=== PATIENT | female | born 1970 | race Caucasian/White ===

== ENCOUNTER → 2016-10-28 | Outpatient (CLI) | payer BC ==
[~2016-10-28] MED LIST: ACET-1256 PO; ACET-1346; ACET1TAB84 PO; ANAS1TAB19 PO; CEPH500C2 PO; CYCL5TAB PO; DIPH-437 PO; GABA-112 PO; HYDR5TAB27 PO; IBUP600T44 PO; LORA-741 PO; MTR600X PO; NAPR1TAB9 PO; PRENCAP; RANI150T3 PO; RANITAB6; TRIA37.5 PO; VNTHFA/IN INH
[2016-10-28 14:02] LABS: BLOOD UREA NITROGEN 13 mg/dl (7-18); CALCIUM 9.1 mg/dl (8.5-10.1); CARBON DIOXIDE 31 mmol/L (21-32); CHLORIDE 102 mmol/L (98-107); CHOLESTEROL 244 mg/dl (0-200); CREATININE 0.92 mg/dl (0.60-1.20); GLUCOSE 98 mg/dl (70-99); POTASSIUM 3.6 mmol/L (3.5-5.1); SODIUM 140 mmol/L (136-145)
[2016-10-28 14:06] LABS: CHOLESTEROL/HDL RATIO 5.3; HDL CHOLESTEROL 46 mg/dl; LDL CHOLESTEROL CALCULATED 173 mg/dl; TRIGLYCERIDES 125 mg/dl (0-150); VERY LOW DENSITY LIPOPROT CALC 25 mg/dl
== END | disposition home or self-care (01) ==
LOC: C.LABBC 11:37
PROVIDERS: ATTEND Family Medicine
DX: I10 Essential (primary) hypertension (principal); E78.5 Hyperlipidemia, unspecified

== ENCOUNTER → 2016-11-14 | Outpatient (CLI) | payer BC ==
[~2016-11-14] MED LIST changes: -ACET-1346; +ACET325T30
--- NOTE | 2016-11-14 15:35 | DIAGNOSTIC IMAGING REPORT ---
LYMPHOSCINTIGRAPHY RIGHT BREAST; LYMPHOSCINTIGRAPHY LEFT BREAST CLINICAL HISTORY: Bilateral breast cancer. PROCEDURE: Using standard sterile technique, 4 intradermal and one deep injection of 0.511 mCi of Lymphoseek was placed in the right breast lateral to the nipple. 4 intradermal and one deep injection of 0.518 mCi of Lymphoseek was then placed into the left breast in the upper outer quadrant. The patient tolerated the procedure well. There were no immediate complications. The patient will undergo surgery tomorrow at [facility]. No imaging was obtained at the referring physician's request. IMPRESSION: Injection of 0.511 mCi of Lymphoseek in the right breast and 0.5, 0.8 mCi of Lymphoseek in the left breast as above. Electronically signed by: Juaquin Buckner M.D. 11/14/2016 3:33 PM Dictated Date/Time: 11/14/2016 3:31 PM
== END | disposition home or self-care (01) ==
LOC: C.NUCL 13:23
PROVIDERS: ATTEND Surgery
DX: C50.911 Malignant neoplasm of unspecified site of right female breast (principal); C50.912 Malignant neoplasm of unspecified site of left female breast

== ENCOUNTER 2017-02-05 05:45 | Observation (INO) | payer BC ==
[2017-01-30 10:55] VITALS: BMI 29.0
--- NOTE | 2017-01-30 11:43 | PAT Medication Instructions ---
Service Date Jan 30, 2017. Current Home Medication List Acetaminophen (Tylenol), 1,000 MG PO TID Acetaminophen/Diphenhydramine (Tylenol Pm), 1 TAB PO HS PRN for PRN Albuterol Hfa (Ventolin Hfa), 2-4 PUFFS INH Q6H Gabapentin (Neurontin), 200 MG PO HS Lorazepam (Ativan), 0.5 MG PO BID PRN for RN Naproxen (Aleve), 440 MG PO HS Ranitidine Hcl (Zantac), 150 MG PO HS Triamterene/Hctz (Dyazide 37.5MG/25MG), 1 TAB PO HS Medication Instructions For Your Scheduled Surgery Naproxen (Aleve), 440 MG PO HS (patient not currently taking) - Take the following medications the morning of surgery with a sip of water: Lorazepam (Ativan), 0.5 MG PO BID PRN for RN Acetaminophen (Tylenol), 1,000 MG PO TID (if needed) Albuterol Hfa (Ventolin Hfa), 2-4 PUFFS INH Q6H (if needed/ also bring with you to hospital on day of surgery) - Take the following medications as scheduled the night before surgery: Triamterene/Hctz (Dyazide 37.5MG/25MG), 1 TAB PO HS Ranitidine Hcl (Zantac), 150 MG PO HS Lorazepam (Ativan), 0.5 MG PO BID PRN for RN Gabapentin (Neurontin), 200 MG PO HS Acetaminophen/Diphenhydramine (Tylenol Pm), 1 TAB PO HS PRN for PRN Acetaminophen (Tylenol), 1,000 MG PO TID If you have any questions please call us at [phone] or [phone] ( Jane) or [phone]
[2017-01-30 13:03] LABS: PARTIAL THROMBOPLASTIN RATIO 1.1; PROTHROMBIN TIME (PATIENT) 10.7 SECONDS (9.0-12.0)
[~2017-02-05] VITALS: Ht 162.6 cm; Wt 78.6 kg
[2017-02-05] VITALS (8 sets, daily range): BP systolic 117–145; BP diastolic 64–83; PULSE 72–113; TEMP 36.5–36.9; O2SAT 94–100; Ht 162.6 cm; Wt 78.6 kg
[~2017-02-05 05:45] MED LIST changes: -ACET1TAB84 PO; -ACET325T30; -ANAS1TAB19 PO; -CEPH500C2 PO; -CYCL5TAB PO; -HYDR5TAB27 PO; -IBUP600T44 PO; -MTR600X PO; -PRENCAP; -RANITAB6
[2017-02-05] MEDS ORDERED: CLINDAMYCIN 600 MG/54 ML D5W IV SCH (06:00)
[2017-02-05] MEDS ORDERED: ENOXAPARIN 40 MG/0.4 ML SYR SQ SCH (06:00)
[2017-02-05] MEDS ORDERED: CLINDAMYCIN PHOS 150 MG/ML 2 ML VIAL IV SCH (06:00)
[2017-02-05] MEDS ORDERED: LACTATED RINGER'S 1000ML 1,000 ML IV SCH (06:00)
[2017-02-05] MEDS ORDERED: MIDAZOLAM HCL 1 MG/ML 2ML VIAL ONE (06:56)
[2017-02-05] MEDS ORDERED: FENTANYL CITRATE INJ 50 MCG/1 ML 2 ML VIAL ONE ×2 (06:56→13:44)
[2017-02-05] MEDS ORDERED: SCOPOLAMINE 1.5 MG TDSY TD ONE ×2 (06:57→07:00)
[2017-02-05] MEDS ORDERED: FENTANYL CITRATE INJ 50 MCG/1 ML 2 ML VIAL IV PRN (07:00)
[2017-02-05] MEDS ORDERED: ATROPINE SULFATE 0.1 MG/ML 5ML SYR IV PRN (07:00)
[2017-02-05] MEDS ORDERED: HYDROmorphone INJ 1 MG/ML SYR IV PRN (07:00)
[2017-02-05] MEDS ORDERED: ONDANSETRON INJ 2 MG/ML 2 ML VIAL IV PRN ×2 (07:00→13:00)
[2017-02-05] MEDS ORDERED: EpHEDrine SULFATE INJ 50 MG/ML AMP IV PRN (07:00)
--- NOTE | 2017-02-05 07:01 | History & Physical Bridge Note ---
H&P Re-Evaluation Bridge Note: I have examined the patient, reviewed the History & Physical and in the interval since the performance of the History & Physical I have noted the following changes of clinical significance: No changes noted
[2017-02-05] MEDS ORDERED: KETAMINE HCL INJ 50 MG/ML 10 ML VIAL ONE (07:05)
[2017-02-05] MEDS ORDERED: ACETAMINOPHEN 1000 MG/100 ML IV IV ONE (07:12)
[2017-02-05] MEDS ORDERED: GENTAMICIN SULFATE 40 MG/ML 2 ML VIAL ONE ×3 (07:13→10:40)
[2017-02-05] MEDS ORDERED: CEFAZOLIN SOD 1 GM VIAL ONE ×3 (07:13→10:40)
[2017-02-05] MEDS ORDERED: LIDOCAINE/EPINEPHRINE 1% 20 ML VIAL ONE (07:13)
[2017-02-05] MEDS ORDERED: BACITRACIN 50000 UNIT VIAL ONE ×3 (07:14→10:41)
[2017-02-05] MEDS ORDERED: BUPIVACAINE 0.25% 30 ML VIAL ONE (07:14)
[2017-02-05] MEDS ORDERED: METHYLENE BLUE 0.5% 10 ML VIAL ONE (07:15)
[2017-02-05] MEDS ORDERED: BUPIVACAINE 0.5 % 5 MG/1 ML MPF 30ML VIAL ONE (07:16)
[2017-02-05] MEDS ORDERED: LIDOCAINE HCL 1% 20 ML VIAL ONE (07:34)
[2017-02-05] MEDS ORDERED: HYDROmorphone INJ 2 MG/ML SYR/VIAL ONE ×2 (07:59→10:00)
[2017-02-05] MEDS ORDERED: ONDANSETRON INJ 2 MG/ML 2 ML VIAL ONE (08:21)
[2017-02-05] MEDS ORDERED: GLYCOPYRROLATE INJ 0.2 MG/ML VIAL ONE (08:21)
[2017-02-05] MEDS ORDERED: LIDOCAINE HCL 2% 2 ML VIAL (20MG/ML) ONE (08:21)
[2017-02-05] MEDS ORDERED: EpHEDrine SULFATE 50MG/5ML SYR ONE (08:21)
[2017-02-05] MEDS ORDERED: PROPOFOL IV EMULSION 10 MG/ML 20 ML VIAL IV ONE (08:21)
[2017-02-05] MEDS ORDERED: NEOSTIGMINE METHYLSULFATE 5 MG/5 ML SYR ONE (08:21)
[2017-02-05] MEDS ORDERED: ROCURONIUM BROMIDE 10 MG/ML 5 ML VIAL ONE (08:21)
--- NOTE | 2017-02-05 08:32 | Discharge Instructions ---
Discharge Instructions Date of Service Feb 05, 2017. Admission Reason for Admission: Hx Of Breast Cancer, Encounter For Breast Reconstr Discharge Discharge Diagnosis / Problem: History of Breast Cancer Discharge Goals Goal(s): Decrease discomfort Activity Recommendations Activity Limitations: per Instructions/Follow-up section ACTIVITY RECOMMENDATIONS: __Normal activities _x_No bending, lifting or straining __No driving __Driving allowed when you are off pain medications _x_Walking permitted __You should have help at home for ___ days DRESSINGS: __No dressings required _x_Keep dressings dry/in place until first office visit __Remove dressings ___ and leave dressings off __Apply ice ___ days __Remove dressings and reapply garment __Apply antibiotic ointment (Bacitracin, Neosporin, etc) to wounds 3-4 times/ day for 10 days BATHING: _x_Keep dressings dry _x_Sponge bathing permitted __Showering permitted _x_No swimming, hot tubs or soaking in a tub MEDICATIONS: Resume previous medications unless instructed otherwise by your surgeon. _x_Do not use aspirin, Motrin, Advil or Ibuprofen as these may promote bleeding. Please use Tylenol. _x_Prescription(s) provided:antibiotics and pain medication were provided at your last office visit OTHER INSTRUCTIONS: _x_Record drain output 2-3 times per day SPECIAL CARE INSTRUCTIONS: * It is normal to have a mild fever after surgery. If your temperature is higher than 101.5 degrees F, please call the office at [phone]. * Constipation is a typical side effect of pain medication. An over-the- counter stool softener will help relieve this. * Leaking around surgical drains may occur and should not cause concern. Sometimes these drains become clogged. If this happens, remove the bulb and milk the clot out of the tube, then replace the bulb. * Drainage from wounds after liposuction is normal and should be expected. Garments will become soiled. You should protect furniture and bedding. This drainage should mostly subside within 2-3 days. Leave garments in place unless instructed to remove them. * If you have unusual drainage from a wound or are concerned you have an infection or have any questions or concerns, please call the office at [phone]. FOLLOW UP VISIT: If not already scheduled, please call the office, , when you return home after surgery to schedule an appointment to be seen in _1__ days. . Current Hospital Diet Patient's current hospital diet: Discharge Diet Recommended Diet: Regular Diet Pending Studies Studies pending at discharge: yes List of pending studies: pathology Medical Emergencies . Who to Call and When: Medical Emergencies: If at any time you feel your situation is an emergency, please call 911 immediately. . Non-Emergent Contact Non-Emergency issues call your: Primary Care Provider, Surgeon . "Provider Documentation" section prepared by Brionna Calloway. VTE Core Measure Inpt VTE Proph given/why not?: SCD's [place] Drug Monitoring Program Search Results: no issues identified
[2017-02-05] MEDS ORDERED: EpHEDrine SULFATE INJ 50 MG/ML AMP ONE (11:29)
[2017-02-05] MEDS: BACITRACIN OINT 15 GM TUBE ONE ×2 (12:32→12:48)
--- NOTE | 2017-02-05 12:49 | [facility] Post Operative Brief Note ---
Immediate Operative Summary Operative Date Feb 05, 2017. Pre-Operative Diagnosis Breast Cancer Post-Operative Diagnosis Breast Cancer Procedure(s) Performed Bilateral Nipple Sparing Mastectomies - Dr. Lara Bilateral Nipple Sparing First Stage Immediate Breast Reconstruction with Tissue Tow Truck Driver and Acellular Dermal Matrix - Surgeon Dr. Lara, Dr. Jaimes Engine Buildup Mechanic Surgeon(s) Brionna Calloway PA-C Estimated Blood Loss 50CC Findings NACs pink and viable at end of case, 350 cc per bottle blowing machine tender Specimens F: Tissue below aerola left breast G: Tissue below nipple left breast Drains LEX x2 Anesthesia General Complication(s) None Disposition Recovery Room / PACU
[2017-02-05] MEDS ORDERED: ALBUTEROL HFA 8 GM INHALER INH PRN (13:00)
[2017-02-05] MEDS ORDERED: MoRPHine SULFATE 2 MG/ML CARP IV PRN (13:00)
[2017-02-05] MEDS ORDERED: DiphenhydrAMINE HCL 50 MG/ML VIAL IV PRN (13:00)
[2017-02-05] MEDS ORDERED: PROMETHAZINE HCL INJ 12.5 MG in SODIUM CHLORIDE 0.9% 50ML 50 ML IV PRN (13:00)
[2017-02-05] MEDS ORDERED: LORAZEPAM 0.5 MG TAB PO PRN (13:00)
[2017-02-05] MEDS ORDERED: OXAZEPAM 10MG CAP PO PRN (13:00)
[2017-02-05] MEDS ORDERED: MoRPHine SULFATE 4 MG/ML 1 ML CARP\\VIAL IV PRN (13:00)
--- NOTE | 2017-02-05 13:02 | DIAGNOSTIC IMAGING REPORT ---
CHEST ONE VIEW PORTABLE CLINICAL HISTORY: INCORRECT INSTRUMENT COUNT EXTRA RETRACTOR AT END OF CASE COMPARISON STUDY: No previous studies for comparison. FINDINGS: The tip of the endotracheal tube is 4.6 cm above the karen. There are no unexpected radiopaque foreign bodies. Breast spacers are in place. IMPRESSION: No unexpected radiopaque foreign bodies within the chest. Electronically signed by: Tien Villafuerte M.D. 02/05/2017 1:00 PM Dictated Date/Time: 02/05/2017 1:00 PM
[2017-02-05] MEDS ORDERED: IV FLUIDS COMPLETED PRN (13:15)
--- NOTE | 2017-02-05 13:54 | Anesthesiology Progress Note ---
Anesthesia Post Op Note Date & Time Feb 05, 2017 at 13:53 Vital Signs Pain Intensity: 5 Vital Signs Past 12 Hours Date Time Temp Pulse Resp B/P Pulse Ox O2 Delivery O2 Flow Rate FiO2 02/05/17 13:45 90 14 156/76 97 Nasal Cannula 2 02/05/17 13:35 97 14 138/89 94 Room Air 02/05/17 13:25 109 14 154/83 99 Mask 10 02/05/17 13:15 108 16 146/84 99 Mask 10 02/05/17 13:07 36 114 16 149/80 99 Mask 10 02/05/17 06:07 36.8 72 16 136/77 98 Room Air Notes Mental Status: alert / awake / arousable, participated in evaluation Pt Amnestic to Procedure: Yes Nausea / Vomiting: adequately controlled Pain: adequately controlled Airway Patency, RR, SpO2: stable & adequate BP & HR: stable & adequate Hydration State: stable & adequate Anesthetic Complications: no major complications apparent Pt doing well.
--- NOTE | 2017-02-05 15:04 | OPERATIVE REPORT ---
DATE OF OPERATION: 02/05/2017 PREOPERATIVE DIAGNOSES: 1. Upper outer quadrant left breast cancer. 2. Right breast ductal carcinoma in situ. PROCEDURE: Bilateral nipple sparing mastectomy to be followed by immediate reconstruction performed by Dr. Zoraida Jaimes. SURGEON: Dr. Lara. ANESTHESIA: General with local infiltration with 1% lidocaine and 0.5% Marcaine mixed in a 1:1 ratio. ESTIMATED BLOOD LOSS: Minimal. Drains were replaced at the end of the case by Dr. Jaimes. Counts would be performed at the end of the case after Dr. Jaimes was finished. INDICATIONS AND FINDINGS: The patient is a 46-year-old female who was found to have calcifications in both upper outer breasts with extensive calcifications on the right and a small cluster on the left. Ultrasound core biopsies were performed on both. The right calcifications were found to be ductal carcinoma in situ. Because of the extensive nature, it was doubtful whether a lumpectomy would be possible to remove all the calcifications. The small group of calcifications in the left upper outer breast however contained microinvasion with two 1.5 mm areas of grade 1-2 infiltrating ductal carcinoma. Because of the bilateral nature of disease and the extensive nature of the DCIS on the right, the patient was proposed to entertain bilateral nipple sparing mastectomies. Before doing this however, her breasts were staged. She had sentinel lymph node biopsies performed in both axillae. The sentinel node on the right was negative. The sentinel node on the left contained a 3.5 mm implanted metastatic adenocarcinoma. At this point, it was proposed that the patient have possibility of just lumpectomy and radiation on the left with a right mastectomy and reconstruction or a routine mastectomy on the left with possible radiation. However, the patient was still adamant that she wanted the nipple sparing mastectomy. So to completely stage the left side, a lumpectomy and axillary dissection was performed. She had a total of 19 negative nodes on the left. She had 1 small implant of remaining tumor, measuring 0.94 mm in size. This was grade 1 infiltrating ductal carcinoma. Margins were clear on the lumpectomy site. She was seen by oncology, Dr. Nba Corcoran, who proposed chemotherapy but the patient declined and would rather go with hormone therapy only. Dr. Corcoran also referred her to radiation therapy. She declined the 1st appointment with radiation and was reluctant to have radiation but will be seeing radiation in 2 weeks. After discussion with Dr. Gonzalez from radiation, he said people with 1-3 lymph nodes positive following mastectomy could be offered radiation therapy. This is based on meta-analysis out of [place] from historic data. With this knowledge, the patient still wished to proceed with the nipple sparing mastectomy. At the time of the procedure, the breast tissue was very well defined and the dissection was able to be carried out on surface of the breast, away from the subcutaneous tissue with a very defined plane. The area of previous dissection on the left had some fat necrosis. No other gross tumors were seen in the specimen. The tissue directly below both nipples was excised as separate specimens to assure no DCIS was approaching the nipple. There was no gross disease in these areas either. TECHNIQUE: The patient was placed on the operating table in the supine position with both arms extended on arm boards. Following general anesthetic, patient was prepped with Betadine and draped in a sterile fashion. Timeout was performed, identifying the patient and the procedure. Attention was first turned to the right breast which had no invasive disease. An inframammary incision was made for approximately 8 cm. Dissection was carried along from the inframammary incision, cephalad to the area of the areola. Neetu clamps were used on the breast tissue for countertraction. The flap was raised with palpation using the surgeon's hand as retractor on the flap to hydrate thickener operator the thickness of the flap at all times. When the areola was reached, a thin layer of residual breast tissue was allowed to remain behind in this area, so as to not buttonhole the areola. Once beyond the superior area of the areola, the dissection was once again broke through into the fatty tissue under the surface of the breast. Once this level was reached, the attention was turned back down to the inferior aspect of the breast, in which Neetu clamps were applied. This area was elevated and the breast tissue was dissected off of the underlying pectoralis muscle, taking the pectoralis fascia along with the breast. This dissection was carried as far cephalad, medial and lateral as possible. The lateral aspect went down along the serratus anterior muscle. Once freed from below, attention was then turned above. Dissection on the anterior surface breast was conducted medially and then laterally. Finally, the medial aspect of the breast was identified, dissected circumferentially up to the apex of the superior portion of the breast, which had been dissected down to the pectoralis muscle. This was taken off the pectoralis, freeing the breast superiorly. Final dissection was carried out in the area of the axilla. The dissection ended at the area of the previous sentinel node biopsy. Suture was placed on the axillary tail prior to removal and on the breast directly beneath the nipple. The dissection was carried out laterally in the same fashion along the edge of the breast, finally freeing the breast which was then sent to pathology for immediate fixation in formalin. The area was inspected and found to have excellent hemostasis. Attention was then turned below the nipple. There were some small remnants of breast tissue in the area beneath the areola, which were removed and sent with the specimen. The area of the nipple was identified, a Neetu was used to grasp superficial tissue below the nipple. Metzenbaum scissors were used to dissect a thin layer of tissue in this area beneath the nipple on the major ducts for pathologic evaluation to assure there was no DCIS coming to the area. Warm laps were then placed along the incision line and the field was turned over to Dr. Zoraida Jaimes for reconstruction. Attention was then turned to the left breast. The same inframammary fold incision was made for 8 cm using local anesthetic infiltration in the skin prior to incision. The dissection was carried out on the surface of the breast using Neetu clamps for retraction to the point above the superior aspect of the areola. The breast was then lifted off of the pectoralis muscle and serratus anterolaterally. Dissection was then carried medial, up along the medial aspect of the breast, down to the pectoralis. At this point, it was noted that a rim of breast tissue was left at the inframammary fold. This was removed easily and sent as a separate specimen using Bovie cautery for this dissection. The dissection was then carried laterally along the surface of the breast and finally dissection through the breast tissue in the superior aspect of the areola was dissected through to the fatty tissue on the surface of the breast. Once again, the dissection was carried down to the pectoralis muscle superiorly. From a medial approach, the dissection was carried around, finally to the area of the axilla where the previous lumpectomy was performed. All the fat necrosis from the previous lumpectomy was removed along with the specimen. A suture was placed in the tail of Jamison and the axillary tail, marking this for pathology as well as a long suture and the breast below the nipple. The breast was then dissected free from the axilla in the area of the previous lumpectomy and sent to pathology for immediate fixation in formalin. Attention was then turned below the nipple and areola. There was one area of residual breast tissue on the superior aspect of the areola. This was removed using Metzenbaum scissors and sent as separate specimens. The Neetu was then placed superficially on the tissue below the nipple and once again this was sent as a separate specimen to rule out any DCIS. There was arterial flow in the area below the areola and nipple in this area. The wound was then inspected. Complete hemostasis was obtained with Bovie cautery, warm sponge was then placed over the incision line along with a clean towel and this field was once again turned over to Dr. Zoraida Jaimes. The patient tolerated the procedure well and left the operating room in stable condition. I attest to the content of the Intraoperative Record and any orders documented therein. Any exceptio ns are noted below.
[2017-02-05] MEDS: MoRPHine SULFATE 2 MG/ML CARP IV PRN ×3 (15:49→22:16)
[2017-02-05] MEDS: LACTATED RINGER'S 1000ML 1,000 ML IV SCH ×2 (15:50→22:15)
[2017-02-05] MEDS: CEFAZOLIN IV 2,000 MG in DEXTROSE 5% 50ML 50 ML IV SCH (18:49)
[2017-02-05] MEDS: HYDROmorphone HCL 2 MG TAB PO PRN (20:04)
[2017-02-05] MEDS ORDERED: GABAPENTIN 100 MG CAP PO SCH (21:00)
[2017-02-05] MEDS ORDERED: RANITIDINE HCL 150 MG TAB PO SCH (21:00)
[2017-02-05] MEDS ORDERED: TRIAMTERENE/HCTZ 37.5/25MG CAP PO SCH (21:00)
--- NOTE | 2017-02-05 22:03 | OPERATIVE REPORT ---
DATE OF OPERATION: 02/05/2017 PREOPERATIVE DIAGNOSIS: Breast carcinoma. POSTOPERATIVE DIAGNOSIS: Same. PROCEDURE PERFORMED: Bilateral first-stage immediate breast reconstruction with tissue job tracer and AlloDerm. SURGEON: Dr. Zoraida Jaimes. ENGINEER GAS PUMPING STATION: Brionna Calloway PA-C. ANESTHESIA: General. COMPLICATIONS: None. INDICATION FOR THE PROCEDURE: The patient is a 46-year-old female who was referred to me by Dr. Lara for evaluation for breast reconstruction. She had recent diagnosis of left breast cancer and right breast ductal carcinoma in situ. She underwent staging sentinel lymph node biopsy, followed by mastectomy. We felt she would be a candidate for nipple sparing mastectomy. This was performed by Dr. Lara prior to my beginning the reconstruction. Following completion of the right mastectomy, I scrubbed to begin the reconstructive process while Dr. Lara performed the left mastectomy. His approach for mastectomy was an inframammary fold incision along the lateral aspect. Pocket was examined for hemostasis. All tissue appeared viable including the nipple-areolar complex. I began with elevation of the pectoralis major muscle, off the pectoralis minor laterally, and this was performed in a lateral to medial direction. I divided the insertion of the pectoralis major muscle off the ribs inferiorly. I did not divide any of the sternal attachments. Throughout this procedure, hemostasis was achieved with electrocautery. Once the muscle had been adequately elevated to create a pocket, I selected a medium contour thick AlloDerm breast piece which was prepared and placed into the wound. It was sutured medially using 2-0 Vicryl U stitches and the inframammary fold was sutured using 2-0 Vicryl U stitches to attach the AlloDerm to the inframammary fold. Subsequent to this, base diameter was measured and noted to be 13 cm. Wound was irrigated using triple antibiotic irrigation. A 13 cm Allergan style 133 MV-T job tracer was selected and prepared by aspirating residual air and injecting 50 mL of sterile saline. It was bathed in antibiotic irrigation prior to implantation. Gloves were changed. Chairlift Operator was then placed in the pocket as medially and inferiorly as possible and was tacked down using 2-0 Vicryl sutures to the suture tabs. AlloDerm was sutured to the inferior border of the pectoralis major muscle using 2-0 Vicryl running suture. Lateral pocket was closed down using 2-0 Vicryl U stitches to suture the AlloDerm to the serratus fascia. A 15-[place] drain was placed laterally in the wound and brought out through a separate stab incision. I performed minimal closure of the inframammary fold using 2-0 Vicryl deep dermal suture. I then marked the position for accessing the job tracer fill port. The job tracer was accessed by my physician assistant public defender and a total of 350 mL including the initial 50 mL were placed. At this point, there was minimal tension on the wound but with reasonable breast volume. I, therefore, elected to proceed with closure using 2-0 Vicryl deep dermal sutures and 3-0 PDS interrupted dermal sutures. 3-0 Monocryl running subcuticular suture was placed. Dermabond Prineo was applied to the incision. A similar procedure was performed on the left side. Final total of 350 mL was also placed on the left side. Following completion of the procedure, nipple-areolar complexes were centered nicely over the tissue job tracer and the nipple-areolar complex appeared viable. 0.25% Marcaine plain was placed through the LEX drains. Xeroform was placed around the dressings and dry dressings were placed. A surgical bra was placed. The procedure was tolerated well. The patient was awakened and transferred to recovery in satisfactory condition. Brionna Calloway PA-C, was present and scrubbed throughout the entire procedure and was instrumental in preparing the tissue expanders, performing job tracer fill and assisting in simultaneous wound closure. I attest to the content of the Intraoperative Record and any orders documented therein. Any exceptio ns are noted below.
[2017-02-05] MEDS: ACETAMINOPHEN 500 MG TAB PO SCH (22:08)
[2017-02-06] MEDS: HYDROmorphone HCL 2 MG TAB PO PRN ×4 (00:30→15:55)
[2017-02-06] MEDS: MoRPHine SULFATE 2 MG/ML CARP IV PRN ×2 (01:52→03:40)
[2017-02-06] MEDS: CEFAZOLIN IV 2,000 MG in DEXTROSE 5% 50ML 50 ML IV SCH (03:26)
[2017-02-06 04:17] VITALS: BP 105/67; PULSE 81; TEMP 36.9; O2SAT 94
[2017-02-06] MEDS: ACETAMINOPHEN 500 MG TAB PO SCH ×2 (05:51→13:41)
[2017-02-06] MEDS: LACTATED RINGER'S 1000ML 1,000 ML IV SCH ×2 (05:53→08:42)
[2017-02-06 07:34] VITALS: BP 103/68; PULSE 83; TEMP 37; O2SAT 91
[2017-02-06] MEDS ORDERED: MULTIVITAMIN TAB PO SCH (09:00)
--- NOTE | 2017-02-06 09:09 | Surgery Progress Note ---
Surgery Progress Note Date of Service Feb 06, 2017. Subjective Post OP Day: 1 Patient complains of post-operative pain. She is taking morphine and vicodin. Has ambulated and tolerated regular diet. Objective Vital Signs: Date Time Temp Pulse Resp B/P Pulse Ox O2 Delivery O2 Flow Rate FiO2 02/06/17 08:40 Room Air 02/06/17 07:34 37.0 83 20 103/68 91 Room Air 02/06/17 04:17 36.9 81 16 105/67 94 Room Air 02/05/17 23:47 36.9 86 16 117/64 98 Room Air 02/05/17 22:22 94 Room Air 02/05/17 17:45 36.5 99 16 120/77 100 Nasal Cannula 02/05/17 16:48 113 16 131/81 97 Nasal Cannula 2.0 02/05/17 15:45 36.6 100 16 130/80 98 Nasal Cannula 2.0 02/05/17 15:45 Nasal Cannula 2.0 02/05/17 15:23 36.5 100 16 127/79 98 Nasal Cannula 2.0 02/05/17 14:45 36.5 109 16 145/83 100 Nasal Cannula 2.0 02/05/17 14:45 100 Nasal Cannula 2.0 02/05/17 14:15 36.4 88 16 152/78 99 Nasal Cannula 2 02/05/17 14:05 36.4 83 16 147/79 99 Nasal Cannula 2 02/05/17 13:55 36.4 87 16 150/81 98 Nasal Cannula 2 02/05/17 13:45 90 14 156/76 97 Nasal Cannula 2 02/05/17 13:35 97 14 138/89 94 Room Air 02/05/17 13:25 109 14 154/83 99 Mask 10 02/05/17 13:15 108 16 146/84 99 Mask 10 02/05/17 13:07 36 114 16 149/80 99 Mask 10 Physical Exam: LEX drainage (25/20cc last shift) General Appearance: WD/WN, no apparent distress Incision(s): clean, dry, intact, no erythema Assessment & Plan POD #1 bilateral nipple sparing mastectomy with immediate reconstruction 1. having expected post-operative pain. Likely home later today when off morphine. Will see in office tomorrow
--- NOTE | 2017-02-06 10:44 | Anesthesiology Progress Note ---
Anesthesia Post Op Note Date & Time Feb 06, 2017 at 10:43 Vital Signs Vital Signs Past 12 Hours Date Time Temp Pulse Resp B/P Pulse Ox O2 Delivery O2 Flow Rate FiO2 02/06/17 08:40 Room Air 02/06/17 07:34 37.0 83 20 103/68 91 Room Air 02/06/17 04:17 36.9 81 16 105/67 94 Room Air 02/05/17 23:47 36.9 86 16 117/64 98 Room Air Notes Mental Status: alert / awake / arousable, participated in evaluation Pt Amnestic to Procedure: Yes Nausea / Vomiting: adequately controlled Pain: adequately controlled Airway Patency, RR, SpO2: stable & adequate BP & HR: stable & adequate Hydration State: stable & adequate Anesthetic Complications: no major complications apparent
[2017-02-06 12:36] VITALS: BP 108/74; PULSE 67; TEMP 37; O2SAT 94
[2017-02-06] MEDS: HYDROCODONE/ACETAMOPHEN 5/325MG TAB PO PRN ×2 (13:42→17:34)
[2017-02-06 17:10] VITALS: BP 108/74; PULSE 67; TEMP 37; O2SAT 94
--- NOTE | 2017-02-07 08:35 | Discharge Summary ---
Discharge Summary Date of Service Feb 07, 2017. Admission Date/Reason Feb 05, 2017 at 12:55 Hx Of Breast Cancer, Encounter For Breast Reconstr. Discharge Date/Disposition Feb 06, 2017 Home Diagnosis Principal Diagnosis: History of Breast Cancer, Encounter for Breast Reconstruction Procedure(s) Performed Bilateral Nipple Sparing Mastectomy with Immediate Breast Reconstruction using Tissue Expanders and Alloderm Matrix Medication Reconciliation Continued Medications: Acetaminophen (Tylenol) 500 Mg Tab 1000 MG PO TID, TAB Acetaminophen/Diphenhydramine (Tylenol Pm) 500 Mg/25 Mg Tab 1 TAB PO HS PRN for PRN, TAB Albuterol Hfa (Ventolin Hfa) 200 Puffs/45666 Mcg Aers 2-4 PUFFS INH Q6H, #1 INHALER Gabapentin (Neurontin) 100 Mg Cap 200 MG PO HS, CAP Lorazepam (Ativan) 0.5 Mg Tab 0.5 MG PO BID PRN for RN, TAB Ranitidine Hcl (Zantac) 150 Mg Tab 150 MG PO HS, TAB Triamterene/Hctz (Dyazide 37.5MG/25MG) Cap 1 TAB PO HS, CAP Discontinued Medications: Naproxen (Aleve) 220 Mg Tab 440 MG PO HS, TAB Admission Physical Exam As per Admitting History & Physical. Hospital Course Patient presented to [facility] with history of breast cancer. She was taken to the OR and underwent bilateral nipple sparing mastectomy with Dr. Lara and immediate breast reconstruction using tissue expanders and alloderm matrix by Dr. Jaimes. Two rebecca drains were placed intraoperatively. She tolerated the procedure well and was taken to recovery. On POD #1, she was having expected postoperative pain. On exam, her incisions were CDI. Drains had about 25c of serosanguineous fluid. Her nipples were pink. VSS. She was tolerating a regular diet and ambulating. Her pain improved throughout the day and was was able to control pain on PO hydrocodone-acetaminophen. She was then discharged home with instructions to follow-up in the office on POD #2. Discharge Instructions Please refer to the electronic Patient Visit Report (Discharge Instructions) for additional information.
[2017-02-19] MEDS ORDERED: CEPH500C2 PO (09:28)
[2017-02-19] MEDS ORDERED: IBUP600T44 PO (09:29)
[2017-02-19] MEDS ORDERED: CYCL5TAB PO (09:31)
[2017-07-23] MEDS ORDERED: ACET1TAB84 PO (10:15)
[2017-07-23] MEDS ORDERED: ANAS1TAB19 PO (10:15)
== END 2017-02-06 17:57 | disposition home or self-care (01) ==
LOC: ENRESERVDT → ENRESERVTM → C.ACU 05:45 → C.MSN 12:55
PROVIDERS: ADMIT Plastic Surgery; ATTEND Plastic Surgery
DX: C50.912 Malignant neoplasm of unspecified site of left female breast (principal); D05.11 Intraductal carcinoma in situ of right breast; E78.5 Hyperlipidemia, unspecified; F41.8 Other specified anxiety disorders; I10 Essential (primary) hypertension; M51.36 Other intervertebral disc degeneration, lumbar region; Z82.49 Family history of ischemic heart disease and other diseases of the circulatory system; Z85.07 Personal history of malignant neoplasm of pancreas; Z81.8 Family history of other mental and behavioral disorders; Z79.899 Other long term (current) drug therapy

== ENCOUNTER → 2017-02-10 | Outpatient (CLI) | payer BC ==
[~2017-02-10] MED LIST changes: +ACET1TAB84 PO; +ANAS1TAB19 PO; +CEPH500C2 PO; +CYCL5TAB PO; +IBUP600T44 PO
[2017-02-10 17:04] LABS: BLOOD UREA NITROGEN 10 mg/dl (7-18); CARBON DIOXIDE 36 mmol/L (21-32); CHLORIDE 100 mmol/L (98-107); CREATININE 0.88 mg/dl (0.60-1.20); GLUCOSE 88 mg/dl (70-99); MAGNESIUM 2.2 mg/dl (1.8-2.4); POTASSIUM 3.7 mmol/L (3.5-5.1); SODIUM 141 mmol/L (136-145)
== END | disposition home or self-care (01) ==
LOC: C.LAB1850 15:36
PROVIDERS: ATTEND Physician Assistant
DX: G89.18 Other acute postprocedural pain (principal)

== ENCOUNTER → 2017-07-21 | Outpatient (CLI) | payer BC ==
[~2017-07-21] MED LIST changes: -NAPR1TAB9 PO
[2017-07-21 17:30] LABS: BASO % 0.4 %; BASO ABS # 0.04 K/uL (0-0.2); COMPLETE YES; HEMATOCRIT 43.2 % (37-47); IG% 0.1 %; LYMPH % 25.8 %; LYMPH ABS # 2.31 K/uL (1.2-3.4); MEAN CELL VOLUME 91.9 fL (80-100); MEAN CORPUSCULAR HEMOGLOBIN 30.4 pg (25-34); MEAN CORPUSCULAR HGB CONC 33.1 g/dl (32-36); MEAN PLATELET VOLUME 10.1 fL (7.4-10.4); MONO % 7.6 %; NEUT % 65.1 %; PLATELET COUNT 325 K/uL (130-400); WHITE BLOOD COUNT 8.95 K/uL (4.8-10.8)
[2017-07-21 17:39] LABS: PARTIAL THROMBOPLASTIN RATIO 1.1; PROTHROMBIN TIME (PATIENT) 10.4 SECONDS (9.0-12.0)
[2017-07-21 18:08] LABS: BLOOD UREA NITROGEN 9 mg/dl (7-18); BUN/CREATININE RATIO 10.1 (10-20); CARBON DIOXIDE 31 mmol/L (21-32); CHLORIDE 101 mmol/L (98-107); CREATININE 0.87 mg/dl (0.60-1.20); GLUCOSE 95 mg/dl (70-99); POTASSIUM 3.4 mmol/L (3.5-5.1); SODIUM 139 mmol/L (136-145)
== END | disposition home or self-care (01) ==
LOC: C.LAB1850 16:48
PROVIDERS: ATTEND Plastic Surgery
DX: Z42.1 Encounter for breast reconstruction following mastectomy (principal)

== ENCOUNTER → 2017-07-29 | Day surgery (SDC) | payer BC ==
[2017-07-23 10:20] VITALS: Ht 162.6 cm; Wt 80.9 kg
[~2017-07-29] VITALS: Ht 162.6 cm; Wt 80.9 kg
[~2017-07-29] MED LIST changes: -ACET-1256 PO; +ACETAMINOPHEN 325 MG TAB PO PRN; +ATROPINE SULFATE 0.1 MG/ML 5ML SYR IV PRN; +BACITRACIN 50000 UNIT VIAL ONE; +BUPIVACAINE 0.25% 2.5MG/ML PF 10 ML VIAL ONE; +CEFAZOLIN 2000 MG/60 ML D5W IV SCH; +CEFAZOLIN SOD 1 GM VIAL ONE; -CEPH500C2 PO; +DEXAMETHASONE SOD INJ 4 MG/ML VIAL IV PRN; -DIPH-437 PO; +EpHEDrine SULFATE INJ 50 MG/ML AMP IV PRN; +EpHEDrine SULFATE INJ 50 MG/ML AMP ONE; +FENTANYL CITRATE INJ 50 MCG/1 ML 2 ML VIAL ONE; +GENTAMICIN SULFATE 40 MG/ML 2 ML VIAL ONE; +HYDROCODONE/ACETAMOPHEN 5/325MG TAB PO PRN; +KETOROLAC TROMETHAMINE 30 MG/ML VIAL IV. PRN; +LABETALOL HCL IV 5 MG/ML 20ML IV PRN; +LACTATED RINGER'S 1000ML 1,000 ML IV SCH; +LIDOCAINE HCL 2% 2 ML VIAL (20MG/ML) ONE; +LIDOCAINE/EPINEPHRINE 1% INJ 50 ML VIAL ONE; +METOCLOPRAMIDE HCL INJ 5 MG/ML 2 ML VIAL IV PRN; +MIDAZOLAM HCL 1 MG/ML 2ML VIAL ONE; +MoRPHine SULFATE 10 MG/ML CARP/VIAL IV PRN; +MoRPHine SULFATE 2 MG/ML CARP IV PRN; +MoRPHine SULFATE 4 MG/ML 1 ML CARP\\VIAL IV PRN; +ONDANSETRON INJ 2 MG/ML 2 ML VIAL IV PRN; +ONDANSETRON INJ 2 MG/ML 2 ML VIAL ONE; +PHENYLEPHRINE 100MCG/ML 5ML SYR IV PRN; +PROPOFOL IV EMULSION 10 MG/ML 20 ML VIAL IV ONE; +SODIUM CHLORIDE 0.9% 1000ML 1,000 ML IV SCH; +SODIUM CHLORIDE 0.9% INJ 10 ML VIAL ONE
--- NOTE | 2017-07-29 12:41 | [facility] Post Operative Brief Note ---
Immediate Operative Summary Operative Date Jul 29, 2017. Pre-Operative Diagnosis S/P Bilateral Mastectomy, Primary Reconstruction Post-Operative Diagnosis Same Procedure(s) Performed Bilateral breast implant exchange for silicone implants, right capsulotomy and revision right nipple Surgeon Dr. Pascale Jaimes Dot Compliance Coordinator Surgeon(s) None Estimated Blood Loss 5 Findings some unincorporated alloderm bilaterally, fat necrosis right breast Specimens scar and capsule bilaterally Drains none Anesthesia general Complication(s) None Disposition Recovery Room / PACU
--- NOTE | 2017-07-29 12:46 | Discharge Instructions-SurgCtr ---
Discharge Instructions Date of Service Jul 29, 2017. Visit Reason for Visit: Breast Reconstruction Discharge Discharge Diagnosis / Problem: breast reconstruction Discharge Goals Goal(s): Decrease discomfort, Improve function Medications Stopped Medications Name(s): Stopped Ibuprofen over a week ago. Activity Recommendations Activity Limitations: per Instructions/Follow-up section Anesthesia . Post Anesthesia Instructions: If you have had General Anesthesia or IV Sedation: * Do not drive today. * Resume driving when surgeon permits. * Do not make important decisions or sign legal documents today. * Call surgeon for: 1. Temperature elevations greater than 101 degrees F. 2. Uncontrollable pain. 3. Excessive bleeding. 4. Persistent nausea and vomiting. 5. Medication intolerance (nausea, vomiting or rash). * For nausea and vomiting use only clear liquids such as: tea, soda, bouillon until nausea subsides, then gradually increase diet as tolerated. * If you have any concerns or questions, call your surgeon's office. If physician is unavailable and it is an emergency, call 911 or go to the nearest emergency room. . Instructions / Follow-Up Instructions / Follow-Up ACTIVITY RECOMMENDATIONS: __Normal activities _x_No bending, lifting or straining __No driving _x_Driving allowed when you are off pain medications x__Walking permitted __You should have help at home for ___ days DRESSINGS: __No dressings required _x_Keep dressings dry/in place until first office visit __Remove dressings ___ and leave dressings off __Apply ice ___ days __Remove dressings and reapply garment __Apply antibiotic ointment (Bacitracin, Neosporin, etc) to wounds 3-4 times/ day for 10 days BATHING: _x_Keep dressings dry _x_Sponge bathing permitted __Showering permitted __No swimming, hot tubs or soaking in a tub MEDICATIONS: Resume previous medications unless instructed otherwise by your surgeon. x__Do not use aspirin, Motrin, Advil or Ibuprofen as these may promote bleeding. Please use Tylenol. _x_Prescription(s) provided: Keflex, Vicodin in office OTHER INSTRUCTIONS: __Record drain output 2-3 times per day SPECIAL CARE INSTRUCTIONS: * It is normal to have a mild fever after surgery. If your temperature is higher than 101.5 degrees F, please call the office at [phone]. * Constipation is a typical side effect of pain medication. An over-the- counter stool softener will help relieve this. * Leaking around surgical drains may occur and should not cause concern. Sometimes these drains become clogged. If this happens, remove the bulb and milk the clot out of the tube, then replace the bulb. * Drainage from wounds after liposuction is normal and should be expected. Garments will become soiled. You should protect furniture and bedding. This drainage should mostly subside within 2-3 days. Leave garments in place unless instructed to remove them. * If you have unusual drainage from a wound or are concerned you have an infection or have any questions or concerns, please call the office at [phone]. FOLLOW UP VISIT: If not already scheduled, please call the office, , when you return home after surgery to schedule an appointment to be seen in _2__ days. Diet Recommendations Home Diet: resume previous diet Procedures Procedures Performed: Bilateral breast implant exchange for silicone implants, right capsulotomy and revision right nipple Pending Studies Studies pending at discharge: no Medical Emergencies . Who to Call and When: Medical Emergencies: If at any time you feel your situation is an emergency, please call 911 immediately. . Non-Emergent Contact Non-Emergency issues call your: Primary Care Provider, Surgeon Call Non-Emergent contact if: temperature is above 101.5, your pain is worsening, wound has increased redness . . "Provider Documentation" section prepared by Zoraida Jaimes. . [place] Drug Monitoring Program Search Results: patient reviewed within database, no issues identified Drug Monitoring Findings: documented in office chart
[2017-07-29] MEDS: FENTANYL CITRATE INJ 50 MCG/1 ML 2 ML VIAL IV PRN ×2 (13:12→13:28)
[2017-07-29 13:55] VITALS: TEMP 36.5
[2017-07-29 14:27] VITALS: BP 130/75; PULSE 72; O2SAT 100
--- NOTE | 2017-07-29 14:30 | Anesthesia Progress Nt - [facility] ---
Anesthesia Post Op Note Date & Time Jul 29, 2017 at 14:30 Vital Signs Pain Intensity: 3 Vital Signs Past 12 Hours Date Time Temp Pulse Resp B/P (MAP) Pulse Ox O2 Delivery O2 Flow Rate FiO2 07/29/17 14:27 72 16 130/75 (93) 100 Room Air 07/29/17 13:55 36.5 91 16 160/83 (108) 100 Room Air 07/29/17 13:48 92 07/29/17 13:48 92 07/29/17 13:45 150/79 07/29/17 13:44 36.9 91 12 138/82 100 Room Air 07/29/17 13:43 97 15 07/29/17 13:43 96 15 100 07/29/17 13:42 92 19 100 07/29/17 13:42 93 19 07/29/17 13:40 138/82 07/29/17 13:37 85 13 100 07/29/17 13:37 86 13 07/29/17 13:35 135/76 07/29/17 13:32 83 9 07/29/17 13:32 80 9 100 07/29/17 13:31 81 10 07/29/17 13:31 82 10 100 07/29/17 13:30 136/78 07/29/17 13:26 94 13 07/29/17 13:26 94 13 100 07/29/17 13:25 146/83 07/29/17 13:21 86 12 07/29/17 13:21 86 12 100 07/29/17 13:20 142/87 07/29/17 13:19 80 11 07/29/17 13:19 80 11 100 07/29/17 13:15 131/77 07/29/17 13:14 86 10 100 07/29/17 13:14 86 10 07/29/17 13:10 150/85 07/29/17 13:09 93 13 07/29/17 13:09 93 13 100 07/29/17 13:06 155/82 07/29/17 13:04 90 10 100 07/29/17 13:04 91 10 07/29/17 13:00 145/80 07/29/17 12:59 95 18 07/29/17 12:59 96 18 100 07/29/17 12:55 150/88 07/29/17 12:55 151/81 07/29/17 12:54 36.2 100 14 151/81 100 Diffusion Mask 6 07/29/17 09:45 36.9 78 16 131/93 (106) 99 Room Air Notes Mental Status: alert / awake / arousable, participated in evaluation Pt Amnestic to Procedure: Yes Nausea / Vomiting: adequately controlled Pain: adequately controlled Airway Patency, RR, SpO2: stable & adequate BP & HR: stable & adequate Hydration State: stable & adequate Anesthetic Complications: no major complications apparent
--- NOTE | 2017-07-30 10:07 | OPERATIVE REPORT ---
DATE OF OPERATION: 07/29/2017 PREOPERATIVE DIAGNOSIS: Status post bilateral mastectomy for carcinoma with first-stage immediate reconstruction with tissue expanders and AlloDerm, that desiring implant exchange. POSTOPERATIVE DIAGNOSIS: Same. PROCEDURE: Bilateral breast implant exchange for silicone implants with right capsulotomy and correction of right nipple-areolar complex. SURGEON: Zoraida Jaimes MD. FREIGHT TRAFFIC CONSULTANT: None. ANESTHESIA: General. COMPLICATIONS: None. INDICATION FOR THE PROCEDURE: The patient is a 47-year-old female who underwent bilateral nipple-sparing mastectomy, followed by immediate first-stage breast reconstruction with tissue expanders and AlloDerm. Once she had achieved her desired size, she desired to proceed with implant exchange. Options were discussed and we selected an Inspira Xtra-Full Soft Touch implant. She also had concerns about a depressed area of the nipple-areolar complex causing the nipple to partially invert and cause a crease within the breast. We discussed options for correction and I agreed to attempt this if possible. BRIEF DESCRIPTION OF THE PROCEDURE: The risks, benefits and alternatives of the procedure were explained to the patient who agreed and signed consent. She was identified and marked in the preoperative holding area. She was brought to the operating room where she was positioned supine and placed under anesthesia without incident. The surgical site was prepped and draped sterilely. Nipple-areolar complexes were covered with Tegaderm. A timeout procedure was performed. I began with the left side. Planned incision was marked. Her mastectomy incision was located along the inframammary fold, and therefore, the central portion of this was marked in an elliptical fashion for access. The scar was excised using 15 blade scalpel and sent for pathology. The incision was deepened using electrocautery until the fourth mate was able to be identified. Capsule was incised using electrocautery. The fourth mate was punctured and the saline was drained. The fourth mate was then removed. Pocket on the left was inspected. There was only partial incorporation of the AlloDerm and so the excess AlloDerm which was unincorporated was removed using electrocautery. Otherwise, no masses were identified, no areas of capsular contracture or thickening. The pocket was then irrigated using triple antibiotic irrigation. I placed a 615 mL sizer which did not adequately fill the pocket. Therefore, I elected to proceed with implantation of a 650 mL implant. The pocket was copiously irrigated with antibiotic solution. Gloves were changed and instruments were wiped down prior to placement of the implant. A Natrelle Inspira smooth, round, Xtra-Full, Soft Touch implant with volume of 650 mL was placed into the pocket and the wound was reapproximated using 2-0 Vicryl superficial fascial sutures, followed by 2-0 Vicryl deep dermal sutures, 3-0 PDS superficial dermal suture, 3-0 Monocryl running subcuticular suture. Dermabond was applied. Attention was then turned to the right side. Pocket was opened in similar fashion and the scar was sent for pathology. The fourth mate was punctured and removed. Pocket was inspected. There was noted to be poor incorporation of the AlloDerm on this side as well and the excess AlloDerm was excised. Additionally, some fat necrosis was noted in the area of depression which was bothersome to the patient. Lastly, there was some dense adherent scar just deep to the nipple, which appeared to be causing the puckering. In addition, previously the right fourth mate had been riding somewhat high relative to the nipple position, and therefore, I fairly extensively scored the anterior capsule to release it and allow descent of the implant. The scar bands just posterior to the nipple were also incised. A 615 mL sizer implant was placed as it did appear that preoperatively breasts were symmetric with a smaller volume in the fourth mate. However, this did not adequately fill the pocket and appeared visually to be substantially smaller. Therefore, I elected to proceed with an identical implant for the right breast, i.e., the 650 mL implant. Pocket was copiously irrigated using triple antibiotic irrigation, gloves were changed, instruments were wiped down. The implant was selected and placed into the pocket and closed in similar fashion to the left breast. Once this was completed, the patient was placed in seated position and noted to have excellent symmetry and good projection of the breast. Therefore, dry dressings and a surgical bra were placed. The procedure was tolerated well. She was awakened and transferred to recovery in satisfactory condition. I attest to the content of the Intraoperative Record and any orders documented therein. Any exception s are noted below.
== END | disposition home or self-care (01) ==
LOC: X.SURG 09:22
PROVIDERS: ATTEND Plastic Surgery
DX: Z42.1 Encounter for breast reconstruction following mastectomy (principal); Z85.3 Personal history of malignant neoplasm of breast; Z90.12 Acquired absence of left breast and nipple; I10 Essential (primary) hypertension; E78.5 Hyperlipidemia, unspecified; Q63.1 Lobulated, fused and horseshoe kidney; M51.36 Other intervertebral disc degeneration, lumbar region; F41.8 Other specified anxiety disorders; Z79.899 Other long term (current) drug therapy

== ENCOUNTER → 2018-01-06 | Outpatient (CLI) | payer OTHER ==
[~2018-01-06] MED LIST changes: -ACETAMINOPHEN 325 MG TAB PO PRN; -ATROPINE SULFATE 0.1 MG/ML 5ML SYR IV PRN; -BACITRACIN 50000 UNIT VIAL ONE; -BUPIVACAINE 0.25% 2.5MG/ML PF 10 ML VIAL ONE; -CEFAZOLIN 2000 MG/60 ML D5W IV SCH; -CEFAZOLIN SOD 1 GM VIAL ONE; -DEXAMETHASONE SOD INJ 4 MG/ML VIAL IV PRN; +DIPH-437 PO; -EpHEDrine SULFATE INJ 50 MG/ML AMP IV PRN; -EpHEDrine SULFATE INJ 50 MG/ML AMP ONE; -FENTANYL CITRATE INJ 50 MCG/1 ML 2 ML VIAL ONE; -GENTAMICIN SULFATE 40 MG/ML 2 ML VIAL ONE; -HYDROCODONE/ACETAMOPHEN 5/325MG TAB PO PRN; -IBUP600T44 PO; -KETOROLAC TROMETHAMINE 30 MG/ML VIAL IV. PRN; -LABETALOL HCL IV 5 MG/ML 20ML IV PRN; -LACTATED RINGER'S 1000ML 1,000 ML IV SCH; -LIDOCAINE HCL 2% 2 ML VIAL (20MG/ML) ONE; -LIDOCAINE/EPINEPHRINE 1% INJ 50 ML VIAL ONE; -METOCLOPRAMIDE HCL INJ 5 MG/ML 2 ML VIAL IV PRN; -MIDAZOLAM HCL 1 MG/ML 2ML VIAL ONE; -MoRPHine SULFATE 10 MG/ML CARP/VIAL IV PRN; -MoRPHine SULFATE 2 MG/ML CARP IV PRN; -MoRPHine SULFATE 4 MG/ML 1 ML CARP\\VIAL IV PRN; +NAPR1TAB9 PO; -ONDANSETRON INJ 2 MG/ML 2 ML VIAL IV PRN; -ONDANSETRON INJ 2 MG/ML 2 ML VIAL ONE; -PHENYLEPHRINE 100MCG/ML 5ML SYR IV PRN; -PROPOFOL IV EMULSION 10 MG/ML 20 ML VIAL IV ONE; -SODIUM CHLORIDE 0.9% 1000ML 1,000 ML IV SCH; -SODIUM CHLORIDE 0.9% INJ 10 ML VIAL ONE
[2018-01-06 12:31] LABS: FOLLICLE STIMULAT HORMONE 67.16 IU/L
== END | disposition home or self-care (01) ==
LOC: C.LAB1850 10:52
PROVIDERS: ATTEND Obstetrics & Gynecology
DX: N95.0 Postmenopausal bleeding (principal)

== ENCOUNTER → 2018-01-15 | Outpatient (CLI) | payer OTHER ==
[~2018-01-15] MED LIST changes: -ANAS1TAB19 PO; -CYCL5TAB PO
[2018-01-15 14:41] LABS: ALBUMIN 4.2 gm/dl (3.4-5.0); ALKALINE PHOSPHATASE 76 U/L (45-117); ALT/SGPT 19 U/L (12-78); AST/SGOT 12 U/L (15-37); BLOOD UREA NITROGEN 12 mg/dl (7-18); CALCIUM 9.3 mg/dl (8.5-10.1); CARBON DIOXIDE 31 mmol/L (21-32); CREATININE 0.94 mg/dl (0.60-1.20); GLUCOSE 99 mg/dl (70-99); POTASSIUM 3.7 mmol/L (3.5-5.1); SODIUM 138 mmol/L (136-145); TOTAL PROTEIN 7.8 gm/dl (6.4-8.2)
[2018-01-15 14:46] LABS: CHOLESTEROL 210 mg/dl (0-200); LDL CHOLESTEROL CALCULATED 145 mg/dl
== END | disposition home or self-care (01) ==
LOC: C.LABBC 10:35
PROVIDERS: ATTEND Nurse Practitioner Adult Health
DX: E78.5 Hyperlipidemia, unspecified (principal); I10 Essential (primary) hypertension

== ENCOUNTER → 2018-02-04 | Day surgery (SDC) | payer OTHER ==
[2018-01-12 10:24] VITALS: Ht 162.6 cm; Wt 80.9 kg
[~2018-02-04] VITALS: Ht 162.6 cm; Wt 80.9 kg
[~2018-02-04] MED LIST changes: +ATROPINE SULFATE 0.1 MG/ML 5ML SYR IV PRN; +DEXAMETHASONE SOD INJ 4 MG/ML VIAL ONE; +EpHEDrine SULFATE INJ 50 MG/ML AMP IV PRN; +FENTANYL CITRATE INJ 50 MCG/1 ML 2 ML VIAL IV PRN; +FENTANYL CITRATE INJ 50 MCG/1 ML 2 ML VIAL ONE; +IBUPROFEN 600 MG TAB PO PRN; +KETOROLAC TROMETHAMINE 30 MG/ML VIAL IV. PRN; +LACTATED RINGER'S 1000ML 1,000 ML IV SCH; +LIDOCAINE HCL 2% 2 ML VIAL (20MG/ML) ONE; +MIDAZOLAM HCL 1 MG/ML 2ML VIAL ONE; +MoRPHine SULFATE 2 MG/ML CARP IV PRN; +MoRPHine SULFATE 4 MG/ML 1 ML CARP\\VIAL IV PRN; +ONDANSETRON INJ 2 MG/ML 2 ML VIAL ONE; +PROPOFOL IV EMULSION 10 MG/ML 20 ML VIAL IV ONE; +RANITIDINE HCL 25 MG/ML INJ ONE; +ROCURONIUM BROMIDE 10 MG/ML 5 ML VIAL IV ONE; +SCOPOLAMINE 1.5 MG TDSY TD ONE; +SODIUM CHLORIDE 0.9% 1000ML 1,000 ML IV SCH
--- NOTE | 2018-02-04 12:23 | History & Physical Bridge - SC ---
H&P Re-Evaluation Bridge Note: I have examined the patient, reviewed the History & Physical and in the interval since the performance of the History & Physical I have noted the following changes of clinical significance: Recently had the flu but feeling much better.
--- NOTE | 2018-02-04 13:50 | [facility] Post Operative Brief Note ---
Immediate Operative Summary Operative Date Feb 04, 2018. Pre-Operative Diagnosis Post Menopausal Bleeding, Endometrial Mass, Cervical Stenosis Post-Operative Diagnosis same Procedure(s) Performed D&C, Hysteroscopy Surgeon Dr. Heri Johnson Vice President Of Sales Surgeon(s) 0 Estimated Blood Loss 0 Findings Consistent with Post-Op Diagnosis Fluids (cc crystalloids) 1000cc Specimens none Anesthesia Type General Complication(s) none Disposition Accompanied Pt To Recovery: no Disposition: Recovery Room / PACU
--- NOTE | 2018-02-04 13:52 | Discharge Instructions ---
Discharge Instructions Date of Service Feb 04, 2018. Visit Reason for Visit: Postmenopausal Bleeding Discharge Discharge Diagnosis / Problem: hysteroscopy Discharge Goals Goal(s): Specific goals Activity Recommendations Activity Limitations: per Instructions/Follow-up section Anesthesia . Post Anesthesia Instructions: If you have had General Anesthesia or IV Sedation: * Do not drive today. * Resume driving when surgeon permits. * Do not make important decisions or sign legal documents today. * Call surgeon for: 1. Temperature elevations greater than 101 degrees F. 2. Uncontrollable pain. 3. Excessive bleeding. 4. Persistent nausea and vomiting. 5. Medication intolerance (nausea, vomiting or rash). * For nausea and vomiting use only clear liquids such as: tea, soda, bouillon until nausea subsides, then gradually increase diet as tolerated. * If you have any concerns or questions, call your surgeon's office. If physician is unavailable and it is an emergency, call 911 or go to the nearest emergency room. . Instructions / Follow-Up Instructions / Follow-Up ACTIVITY RECOMMENDATIONS: * Avoid tampons, douching, hot tubs, pools, and intercourse until bleeding has stopped. * May shower as usual. * No strenuous activity for 24-48 hours. After 24-48 hours, you may do anything you feel like doing (driving and sports are okay). SPECIAL CARE INSTRUCTIONS: Special Diet: * Mild nausea may occur in the immediate post-operative period. * Take clear liquids such as tea, cola or bouillon until all nausea has subsided; you may then resume your normal diet. Special Care: * Light bleeding and vaginal spotting can last from a few days to 3-4 weeks. Call your doctor if bleeding becomes heavier than the heaviest part of your period. * Check your temperature twice a day for one week. If it goes above 100.4 degrees Fahrenheit (38.0 Celsius), notify your doctor. * Call your doctor's office for an appointment for 6 weeks after your surgery. FOLLOW-UP VISIT: Call your doctor's office for an appointment for 6 weeks after your surgery. Diet Recommendations Recommended Home Diet: no limitations, resume previous diet Procedures Procedures Performed: Hysteroscopy Pending Studies Studies pending at discharge: no Medical Emergencies . Who to Call and When: Medical Emergencies: If at any time you feel your situation is an emergency, please call 911 immediately. . Non-Emergent Contact Non-Emergency issues call your: Wooden Furniture Polisher . . "Provider Documentation" section prepared by Pamela Johnson. .
[2018-02-04 14:39] VITALS: BP 142/85; PULSE 79; TEMP 36.6; O2SAT 98
--- NOTE | 2018-02-04 15:03 | Anesthesia Progress Nt - [facility] ---
Anesthesia Post Op Note Date & Time Feb 04, 2018 at 15:03 Vital Signs Pain Intensity: 0 Vital Signs Past 12 Hours Date Time Temp Pulse Resp B/P (MAP) Pulse Ox O2 Delivery O2 Flow Rate FiO2 02/04/18 14:39 36.6 79 18 142/85 (104) 98 Room Air 02/04/18 14:30 37.5 81 16 134/96 100 Room Air 02/04/18 14:30 134/96 02/04/18 14:27 83 20 98 02/04/18 14:27 82 20 02/04/18 14:26 83 23 100 02/04/18 14:26 80 23 02/04/18 14:25 144/85 02/04/18 14:21 80 18 100 02/04/18 14:21 79 18 02/04/18 14:20 80 12 02/04/18 14:20 80 12 133/90 100 02/04/18 14:15 89 33 153/87 100 02/04/18 14:15 89 33 02/04/18 14:10 92 15 156/90 100 02/04/18 14:10 91 15 02/04/18 14:05 104 17 02/04/18 14:05 104 17 145/91 100 02/04/18 14:01 147/79 02/04/18 14:00 36.6 106 16 147/79 100 Diffusion Mask 6 02/04/18 12:21 36.8 91 20 113/78 (90) 98 Room Air Notes Mental Status: alert / awake / arousable, participated in evaluation Pt Amnestic to Procedure: Yes Nausea / Vomiting: adequately controlled Pain: adequately controlled Airway Patency, RR, SpO2: stable & adequate BP & HR: stable & adequate Hydration State: stable & adequate Anesthetic Complications: no major complications apparent
--- NOTE | 2018-02-04 17:41 | OPERATIVE REPORT ---
DATE OF OPERATION: 02/04/2018 PREOPERATIVE DIAGNOSES: 1. Presumed postmenopausal bleeding. 2. Cervical stenosis. 3. Questionable endometrial/lower uterine segment mass. POSTOPERATIVE DIAGNOSES: 1. Presumed postmenopausal bleeding. 2. Cervical stenosis. PROCEDURE: Diagnostic hysteroscopy. SURGEON: Pamela Johnson MD ANESTHESIA: General per endotracheal tube. ESTIMATED BLOOD LOSS: Zero. FLUIDS: 1000 mL, 70 mL hysteroscopic deficit. INDICATIONS: Elena is a 47-year-old white female recently diagnosed with breast cancer. She was told by her oncologist that she was most postmenopausal by labs and so was started on anastrozole initially and then switched to letrozole. Month after being on letrozole, she had what seemed to her to be a period. Ultrasound was performed showing a lining that was 4.5 mm and a questionable lower uterine segment mass. I was unable to biopsy or do an SIS in the office because of cervical stenosis. Her cervix was prepped with Cytotec prior to the procedure. FINDINGS: Uterus is small midline and mobile. There are no appreciable adnexal masses. Patient has cervical stenosis. I am able to get into the internal os, but unable to find the internal os. COMPLICATIONS: None. DRAINS: None. DISPOSITION: To recovery room in stable condition. DESCRIPTION OF PROCEDURE: The patient was taken to the operating room where she was identified verbally and by bracelet. She was placed in dorsal supine position where general anesthesia was induced without difficulty. She was then placed in dorsal lithotomy position. A time-out was held identifying correct patient, procedure and positioning. No preoperative antibiotics were required. The bladder was drained of urine and exam under anesthesia was performed with the above noted findings. I was able to place a small Jelena dilator through the internal os, but it only got in about into the cervix about 1-1/2 to 2 cm. I dilated the external os to a #23 Jelena dilator and the hysteroscope was introduced. Unfortunately, I was unable to find the internal os. I tried multiple methods of finding the internal os including visually watching a lacrimal duct probe and by placing a blunt forceps through the hysteroscope. Therefore, because of concern of possibility of creating a false passage or possibly perforation, the procedure was terminated. No specimens were obtained. There were no abnormalities noted in the cervix. All sponge, lap and needle counts were correct x2. The patient tolerated the procedure well and was taken to recovery room in stable condition. I attest to the content of the Intraoperative Record and any orders documented therein. Any exception s are noted below.
== END | disposition home or self-care (01) ==
LOC: X.SURG 11:53
PROVIDERS: ATTEND Obstetrics & Gynecology
DX: N88.2 Stricture and stenosis of cervix uteri (principal); N94.89 Other specified conditions associated with female genital organs and menstrual cycle; N95.0 Postmenopausal bleeding; J45.909 Unspecified asthma, uncomplicated; I10 Essential (primary) hypertension; M19.90 Unspecified osteoarthritis, unspecified site; Z85.3 Personal history of malignant neoplasm of breast; Z88.0 Allergy status to penicillin; Z88.2 Allergy status to sulfonamides; Z88.5 Allergy status to narcotic agent; Z88.8 Allergy status to other drugs, medicaments and biological substances; Z98.890 Other specified postprocedural states; Z90.13 Acquired absence of bilateral breasts and nipples; Z82.49 Family history of ischemic heart disease and other diseases of the circulatory system; Z82.61 Family history of arthritis; Z81.8 Family history of other mental and behavioral disorders; Z83.49 Family history of other endocrine, nutritional and metabolic diseases